=== PATIENT | female | born 1950 | race Caucasian/White ===

== ENCOUNTER 2020-12-03 13:54 | Outpatient (REF) | payer MEDICARE, SELFPAY | END 2020-12-03 13:55 | disposition home or self-care (01) | LOC: HO.BBR 13:54 | PROVIDERS: Visit Provider Internal Medicine Medical Oncology | DX: Z13.89 Encounter for screening for other disorder (principal) ==

== ENCOUNTER 2021-07-14 11:54 | Outpatient (REF) | payer MEDICARE, SELFPAY | END 2021-07-14 11:55 | disposition home or self-care (01) | LOC: HO.BBR 11:54 | PROVIDERS: Visit Provider Internal Medicine Medical Oncology | DX: Z13.89 Encounter for screening for other disorder (principal) ==

== ENCOUNTER 2021-11-16 13:51 | Outpatient (REF) | payer MEDICARE, SELFPAY | END 2021-11-16 13:52 | disposition home or self-care (01) | LOC: HO.BBR 13:51 | PROVIDERS: Visit Provider Internal Medicine Medical Oncology | DX: Z13.89 Encounter for screening for other disorder (principal) ==

== ENCOUNTER 2022-03-23 14:12 | Outpatient (REF) | payer MEDICARE, SELFPAY | END 2022-03-23 14:13 | disposition home or self-care (01) | LOC: HO.BBR 14:12 | PROVIDERS: Visit Provider Internal Medicine Medical Oncology | DX: Z13.89 Encounter for screening for other disorder (principal) ==

== ENCOUNTER 2022-06-29 15:01 | Outpatient (REF) | payer MEDICARE, SELFPAY | END 2022-06-29 15:02 | disposition home or self-care (01) | LOC: HO.BBR 15:01 | PROVIDERS: Visit Provider Internal Medicine Medical Oncology | DX: Z13.89 Encounter for screening for other disorder (principal) ==

== ENCOUNTER 2022-11-06 13:56 | Outpatient (REF) | payer MEDICARE, SELFPAY | END 2022-11-06 13:57 | disposition home or self-care (01) | LOC: HO.BBR 13:56 | PROVIDERS: Visit Provider Internal Medicine Medical Oncology | DX: Z13.89 Encounter for screening for other disorder (principal) ==

== ENCOUNTER 2023-03-21 13:23 | Outpatient (REF) | payer MEDICARE, SELFPAY | END 2023-03-21 13:24 | disposition home or self-care (01) | LOC: HO.BBR 13:23 | PROVIDERS: Visit Provider Internal Medicine Medical Oncology | DX: Z13.89 Encounter for screening for other disorder (principal) ==

== ENCOUNTER 2023-08-02 15:24 | Outpatient (REF) | payer MEDICARE, SELFPAY | END 2023-08-02 15:25 | disposition home or self-care (01) | LOC: HO.BBR 15:24 | PROVIDERS: PCP Internal Medicine; Visit Provider Internal Medicine Medical Oncology | DX: Z13.89 Encounter for screening for other disorder (principal) ==

== ENCOUNTER 2024-01-10 12:49 | Outpatient (REF) | payer MEDICARE, SELFPAY | END 2024-01-10 12:50 | disposition home or self-care (01) | LOC: HO.BBR 12:49 | PROVIDERS: PCP Internal Medicine; Visit Provider Internal Medicine Medical Oncology | DX: Z13.89 Encounter for screening for other disorder (principal) ==

== ENCOUNTER 2024-07-24 12:00 | Outpatient (REF) | payer MEDICARE, SELFPAY ==
--- OUTSIDE RECORDS SUMMARY | 2024-07-24 13:06 | XMS_ITS ---
Author Organization [facility] [place] Address [address] [address] Care Team Providers Care Customer Service Professional Name Role Phone Add, PCP Primary Care Provider Eric Aguilar, September Unavailable [phone] Allergies Allergen (clinical drug ingredient) Drug/Non Drug Allergy documented on EMR Reaction Allergy Type Onset Date Status Biaxin Unknown Drug Allergy Active doxycycline Doxycycline Hyclate Unknown Drug Allergy Active acetaminophen / oxycodone Percocet Unknown Drug Allergy Active cefdinir Cefdinir Unknown Drug Allergy Active Penicillin Unknown Drug Allergy Active Tetanus Toxoids Unknown Drug Allergy A ctive Results Component Value Reference Range Notes CULTURE, AEROBIC BACTERIA Reviewed date:06/16/2024 03:04:21 PM Interpretation: Performing Lab:[facility], [id number] Yolanda Whiting, [id number] Mani Burrell MD Notes/Report: FASTING: UNKNOWN CULTURE, AEROBIC BACTERIA CULTURE, AEROBIC BACTERIA Micro Number: [id number] Test Status: Final Specimen Source: Rt back wound Specimen Quality: Adequate Result: No pathogens isolated. REASON FOR VISIT cyst on back Medications Medication SIG (Take, Route, Frequency, Duration) Notes Start Date End Date Status Alendronate Sodium 70 MG 1 tablet 30 min utes before the first food, beverage or medicine of the day with plain water Orally Active Famotidine 20 MG 1 tablet at bedtime as needed Orally Once a day Active Fexofenadine HCl 60 MG 1 tablet Orally T wice a day Active amLODIPine Besylate-Valsartan 5-160 MG 1 tablet Orally Once a day Active Dupixent 300 MG/2ML as directed Subcutaneous Active Sulfamethoxazole-Trimetho prim 800-160 MG 1 tablet Orally Twice a day for 7 days 06/10/2024 06/17/2024 Active Flonase Sensimist 27.5 MCG/SPRAY 2 sprays (1 spray in each nostril) Nasally Once a day Active Symbicort 160-4.5 MCG/ACT as directed Inhalation Active Problems Problem Type SNOMED Code ICD Code Onset Dates Problem Status W/U Status Risk Notes Problem Asthma (192039916) Asthma (J45.909) Active conf irmed Problem High blood pressure (74974832) High blood pressure (I10) Active confirmed Problem Gastroesophageal reflux disease (552363544) GERD (gastroesophageal reflux disease) (K21.9) Active confirmed Problem Essential hypertension (95657084) Essential hypertension (I10) Active confirmed Problem Mild intermittent asthma (923514709) Mild intermittent asthma, unspecified whether complicated (J45.20) Active confirmed Problem Gastroesophageal reflux disease without esophagitis (586569475) Gastroesophageal reflux disease without esophagitis (K21.9) Active confirmed Vital Signs Temperature 98.6 degrees Fahrenheit 06/10/19 25 Blood pressure systolic 118 mm Hg 06/10/19 25 Blood pressure diastolic 74 mm Hg 025 Heart Rate 68 /min 06/10/2024 Respiratory Rate 18 /min 06/10/2024 Height 5ft 3in in 06/10/2024 Weight 153.0 lbs 06/10/2024 BMI 27.1 kg/m2 06/10/2024 Oximetry 96 % 06/10/2024 Height-cm 160.02 cm 06/10/2024 Weight-kg 69.4 kg 06/10/2024 Encounters Encounter Location Date Provider Diagnosis [facility] [address] [address] 06/10/2024September Aguilar Abscess L02.91 ; Mil d intermittent asthma, unspecified whether complicated J45.20 ; Gastroesophageal reflux disease without esophagitis K21.9 ; Essential hypertension I10 ; Alcohol use Z78.9 ; Encounter for screening for depression Z13.31 ; Medication management Z79.899 ; Encounter for smoking cessation counseling Z71.6 and Counseling and coordination of care Z71.89 Assessments Encounter Date Diagnosis (ICD Code) Assessment Notes Treatment Notes Treatment Clinical Notes Section Notes 06/10/2024 Abscess (ICD-10 - L02.91) Apply warm compresses to the area which will help it open and drain or absorb and go away. Be sure to use good handwashing to help prevent Infection Keep open wound covered to prevent spreading infection or getting additional infection Take Tylenol/Ibuprofe n as needed for pain. Follow up with PCP or clinic as needed 06/10/2024 Mild intermittent asthma, unspecified whether complicated (ICD-10 - J45.20) Stable per patient on current inhalers. Avoid possible triggers including smoking or smoke exposure, pollution/bad air days, change filters in vents regularly. Good hand washing practices and oral hygiene. Avoid crowds during cold/flu season. Vaccination against flu and pneumonia. Stay active and eat healthy. 06/10/2024 Gastroesophageal reflux disease without esophagitis (ICD-10 - K21.9) Patient reports chronic condition stable on current medication/treat ment plan. Continue with routine follow up and monitoring with pcp. Notify pcp if worsening or new symptoms. Limit/avoid caffeine/alcohol /spicy foods, do not eat/drink anything 1 hour prior to bedtime, and routine exercise as tolerated. 06/10/2024 Essential hypertension (ICD-10 - I10) Stable, blood pressure in clinic today was within normal limits. Continue with current medication and follow up with your pcp routinuely for monitoring. Maintaining a healthy lifestyle including a healthy heart diet and regular activity may help lower blood pressure. Choose a diet rich in fruits, vegetables, and low-fat dairy products. Limit amount of saturated fat, trans fat, sodium, red meat, alcohol, sweets, and sugar-sweetened beverages 06/10/2024 Alcohol use (ICD-10 - Z78.9) 06/10/2024 Encounter for screening for depression (ICD-10 - Z13.31) 06/10/2024 Medication management (ICD-10 - Z79.899) 06/10/2024 Encounter for smoking cessation counseling (ICD-10 - Z71.6) 06/10/2024 Counseling and coordination of care (ICD-10 - Z71.89) 06/10/2024 Other Please arrange a follow up visit with your primary care physician to discuss your conditions as soon as possible. You may return to the clinic if your signs or symptoms persist or worsen. For life threatening emergencies, please call 911 or go to the closest emergency room for detailed medical care. You must understand that we are not a primary care facility and you have received Urgent Care treatment only, and that you may have been released before all of your medical problems were known or treated. You, the patient, are responsible to make arrangements with your primary care physician as instructed. Please arrange for follow up medical care for your condition within one week. You must understand that as an Urgent Care Clinic, we are not responsible for routine healthcare maintenance. Such services are to be provided by your primary care physician, even though you may have been seen multiple times in our facility. If your condition worsens, we recommend that you receive another evaluation at the emergency room immediately or contact your primary care physician to discuss your concerns. The patient's / family / guardian questions, concerns, and treatment plan were discussed in detail and all questions were answered to full satisfaction. The patient / family/ guardian are in agreement with the plan of care. Plan Of Treatment Medication Medication Name Sig Start Date Stop Date Notes Sulfamethoxazole-Trimethopri m 800-160 MG 1 tablet Orally Twice a day for 7 days 06/10/2024 06/17/2024 Treatment Notes Assessment Notes Abscess Apply warm compresses to the area which will help it open and drain or absorb and go away. Be sure to use good handwashing to help prevent Infection Keep open wound covered to prevent spreading infection or getting additional infection Take Tylenol/Ibuprofen as needed for pain. Follow up with PCP or clinic as needed Mild intermittent asthma, un specified whether complicated Stable per patient on current inhalers. Avoid possible triggers including smoking or smoke exposure, pollution/bad air days, change filters in vents regularly. Good hand washing practices and oral hygiene. Avoid crowds during cold/flu season. Vaccination against flu and pneumonia. Stay active and eat healthy. Gastroesophageal reflux dise ase without esophagitis Patient reports chronic condition stable on current medication/treatment plan. Continue with routine follow up and monitoring with pcp. Notify pcp if worsening or new symptoms. Limit/avoid caffeine/alcohol/spicy foods, do not eat/drink anything 1 hour prior to bedtime, and routine exercise as tolerated. Essential hypertension Stable, blood pressure in clinic today was within normal limits. Continue with current medication and follow up with your pcp routinuely for monitoring. Maintaining a healthy lifestyle including a healthy heart diet and regular activity may help lower blood pressure. Choose a diet rich in fruits, vegetables, and low-fat dairy products. Limit amount of saturated fat, trans fat, sodium, red meat, alcohol, sweets, and sugar-sweetened beverages Other Please arrange a follow up visit with your primary care physician to discuss your conditions as soon as possible. You may return to the clinic if your signs or symptoms persist or worsen. For life threatening emergencies, please call 911 or go to the closest emergency room for detailed medical care. You must understand that we are not a primary care facility and you have received Urgent Care treatment only, and that you may have been released before all of your medical problems were known or treated. You, the patient, are responsible to make arrangements with your primary care physician as instructed. Please arrange for follow up medical care for your condition within one week. You must understand that as an Urgent Care Clinic, we are not responsible for routine healthcare maintenance. Such services are to be provided by your primary care physician, even though you may have been seen multiple times in our facility. If your condition worsens, we recommend that you receive another evaluation at the emergency room immediately or contact your primary care physician to discuss your concerns. The patient's / family / guardian questions, concerns, and treatment plan were discussed in detail and all questions were answered to full satisfaction. The patient / family/ guardian are in agreement with the plan of care. Next Appt Details Follow Up: F/u with pcp in 2 - 3 Days, Reason: Progress Notes * Radha KIRANOB:1950 (74 yo F)Acc No.[id number]:06/10/2024 Patient:?Ana KIRAN Provider:Willy Aguilar APRN :1950???Age:73 Y???Sex:Female D ate:06/10/2024 Phone: Address:[address] [place] [address] [place], [place], [id number] Pcp:PCP Add Subjective: * Chief Complaints: * ???Cyst on back * HPI: ???Complaint:?Skin Irritation?The skin irritation started?years ?The skin irritation started?right side of her back ?Onset of the skin irritation?has been progressive ?Severity of the skin irritation?is moderate ?The nature of the skin irritation is?redness and crusting ?Aggravating factors include?is not healing ?Alleviating factors include?none ?Associated symptoms include?pain and swelling ?Medication(s) include?none ?Additional information?pt reporting that the last time that she went to her PCP he prescribe her antibiotic but the cyst is not improving and is not gone ?Indigestion?The indigestion has been present?for years ?Severity of the indigestion?is mild ?Aggravating factors include?spicy foods ?Alleviating factors include?proton pump inhibitors ?Associated symptoms include?bloating ?Medication(s) for indigestion include?proton pump inhibitors ?Overall condition?is stable ???*Patient Intake:?New/Est?Patient is a?new patient. ?Historian?Historian?Self ?PCP?Patient has a Primary Care Provider:?Yes ???Pain Management:?Pain Scale?Pain Scale (1-10)?3 ???Alcohol Screening (18yrs+):?Audit-C?Did you have a drink containing alcohol in the past year??Yes ?How often did you have a drink containing alcohol in the past year??Monthly or less ?How many drinks did you have on a typical day when you were drinking in the past year??1 or 2 ?How often did you have six or more drinks on one occasion in the past year??Less than monthly ???Depression Screening (12yrs+):?PHQ-2: How often have the following problems occurred?Little interest or pleasure in doing things??Not at all ?Feeling down, depressed, or hopeless??Not at all ???Drug Screening (18yrs+):?Drug Abuse Screening Tool?Have you used drugs other than those for medical reasons in the past 12 months??No ?Do you use Medical Marijuana or THC Products?No ???Fall Risk (65yrs+):?Assessment?Have you had two or more falls in the past year??No ?Fall Risk Assessment:?No falls in the past year ???Tobacco Screening (All Ages):?Tobacco Use (18yrs+)?Are you a:?Non Smoker ?Have you:?Never Smoked ?Do you use other forms of Tobacco other than cigarettes??None * ROS:?General/Constitutional:?Overall health?good.?Fever?denies.?Night sweats?denies.?Weight loss?denies.?Ophthalmologic:?Vision changes?denies.?Eye Discharge?denies.?Eye Pain?denies.?ENT:?Ear pain?denies.?Nose/Throat problems?denies.?Sore throat?denies.?Respiratory:?Breathing problems?admits , Asthma.?Cough?denies.?Shortness of breath?denies.?Cardiovascular:?Chest pain?denies.?High blood pressure?admits , controlled on medication.?Palpitations?denies.?Gastrointestinal:?Patient complaining of?GERD.?Abdominal p ain?denies.?Constipation?denies.?Diarrhea?denies.?Nausea?denies.?Vomiting?denies .?Genitourinary:?Blood in urine?denies.?Difficulty urinating?denies.?Painful urination?denies.?Musculoskeletal:?Back pain?denies.?Neck pain?denies.?Skin:?Patient complaining of?see hpi.?Neurologic:?Dizziness?denies.?Headache?denies.? * Medical History:? * Surgical History:?hemochroma tosis colonoscopy endoscopy cervical fusion pneumocacal * Hospitalization/Major Diagno stic Procedure:?Denies Past Hospitalization * Family History:?Father: dece ased.?Mother: .? * Medications:?TakingFlonase S ensimist 27.5 MCG/SPRAY Suspension 2 sprays (1 spray in each nostril) Nasally Once a day Symbicort 160-4.5 MCG/ACT Aerosol as directed Inhalation Dupixent 300 MG/2ML Solution Prefilled Syringe as directed Subcutaneous Alendronate Sodium 70 MG Tablet 1 tablet 30 minutes before the first food, beverage or medicine of the day with plain water Orally Famotidine 20 MG Tablet 1 tablet at bedtime as needed Orally Once a day Fexofenadine HCl 60 MG Tablet 1 tablet Orally Twice a day amLODIPine Besylate-Valsartan 5-160 MG Tablet 1 tablet Orally Once a day Medication List reviewed and reconciled with the patientTaking Flonase Sensimist 27.5 MCG/SPRAY Suspension 2 sprays (1 spray in each nostril) Nasally Once a day Taking Symbicort 160-4.5 MCG/ACT Aerosol as directed Inhalation Taking Dupixent 300 MG/2ML Solution Prefilled Syringe as directed Subcutaneous Taking Alendronate Sodium 70 MG Tablet 1 tablet 30 minutes before the first food, beverage or medicine of the day with plain water Orally Taking Famotidine 20 MG Tablet 1 tablet at bedtime as needed Orally Once a day Taking Fexofenadine HCl 60 MG Tablet 1 tablet Orally Twice a day Taking amLODIPine Besylate-Valsartan 5-160 MG Tablet 1 tablet Orally Once a day Medication List reviewed and reconciled with the patient * Allergies:?PenicillinTetanus ToxoidsPercocetBiaxinCefdinirDoxycycline Hyclateno[Allergies Verified] Objective: * Vitals:?Temp:98.6F, HR:68/mi n, BP:118/74mm Hg, Wt:153.0lbs, Ht: 5ft 3in, BMI:27.1Index, RR:18/min, Oxygen sat %:96%, Ht-cm: 160.02 cm, Wt-k.4 kg. * Examination: ???General Examination: ?GENERAL APPEARANCE:?in no acute distress, well developed, well nourished .?HEAD:?normocephalic, atraumatic.?EYES:?pupils equal, round, sclera non-icteric.?LYMPH NODES:?normal, no lymphadenopathy.?SKIN:?abscess- wound right back just below bra line: approximately 2 cm indurated/fluctuant abscess with surrounding erythema and edema, tender and warm to touch, mild thick white discharge?.?HEART:?no murmurs, regular rate and rhythm, S1, S2 normal.?LUNGS:?clear to auscultation bilaterally.?CHEST:?no gross chest deformity.?MUSCULOSKELETAL:? full range of motion.?EXTREMITIES:?no clubbing, cyanosis, or edema.?NEUROLOGIC:?nonfocal,?, alert and oriented, cooperative with exam.?PSYCH?alert, oriented, cognitive function intact, cooperative with exam.? Assessment: * Assessment: 1.?Abscess - L02.91 (Primary )???2.?Mild intermittent asthma, unspecified whether complicated - J45.20???3.?Gastroesophageal reflux disease without esophagitis - K21.9???4.?Essential hypertension - I10???5.?Alcohol use - Z78.9???6.?Encounter for screening for depression - Z13.31???7.?Medication management - Z79.899???8.?Encounter for smoking cessation counseling - Z71.6???9.?Counseling and coordination of care - Z71.89??? Plan: * Treatment: 2.?Mild intermittent asthma, unspecified whether complicated? Notes: Stable per patient on current inhalers. Avoid possible triggers including smoking or smoke exposure, pollution/bad air days, change filters in vents regularly. Good hand washing practices and oral hygiene. Avoid crowds during cold/flu season. Vaccination against flu and pneumonia. Stay active and eat healthy. ?? 3.?Gastroesophageal reflux d isease without esophagitis? Notes: Patient reports chronic condition stable on current medication/treatment plan. Continue with routine follow up and monitoring with pcp. Notify pcp if worsening or new symptoms. Limit/avoid caffeine/alcohol/spicy foods, do not eat/drink anything 1 hour prior to bedtime, and routine exercise as tolerated. ?? 4.?Essential hypertension? Notes: Stable, blood pressure in clinic today was within normal limits. Continue with current medication and follow up with your pcp routinuely for monitoring.Maintaininga healthy lifestyle including a healthy heart diet and regular activity may help lower blood pressure. Choose a diet rich in fruits,vegetables, and low-fat dairy products. Limit amount of saturated fat, transfat, sodium, red meat, alcohol, sweets, and sugar-sweetened beverages?? 5.?Others? Notes:Please arrange a follow up visit with your primary care physician to discuss your conditions as soon as possible. You may return to the clinic if your signs or symptoms persist or worsen. For life threatening emergencies, please call 911 or go to the closest emergency room for detailed medical care. You must understand that we are not a primary care facility and you have received Urgent Care treatment only, and that you may have been released before all of your medical problems were known or treated. You, the patient, are responsible to make arrangements with your primary care physician as instructed. Please arrange for follow up medical care for your condition within one week. You must understand that as an Urgent Care Clinic, we are not responsible for routine healthcare maintenance. Such services are to be provided by your primary care physician, even though you may have been seen multiple times in our facility. If your condition worsens, we recommend that you receive another evaluation at the emergency room immediately or contact your primary care physician to discuss your concerns. The patient's / family / guardian questions, concerns, and treatment plan were discussed in detail and all questions were answered to full satisfaction. The patient / family/ guardian are in agreement with the plan of care.?? * Procedure Codes:?1123F ACP D ISCUSS/DSCN MKR [id number] Screen unhlthy etoh [id number] NEG SCR D PT NOT ELIG F/U/PLN [id number] DOC MEDS VERIFIED W/PT OR [id number] Pt scrn tbco id as non [id number] NORMAL BP READING DOC F/U NOT [id number] BMI<30 AND >=22 CALC & [id number] Unhlthy etoh rcvd couns * Preventive Medicine:? ??Counseling:?ALCOHOL USE/ABUSE SCREENING:?Counseling for alcohol use/abuse ?was completed today ?Positive CAGE questions included?[...] ?Social:?alcohol and drugs:?Discussed the dangers of excessive alcohol intake * Follow Up:?F/u with pcp in 2 - 3 Days * Images * 06/10/2024 * Sign off status: Completed true * Provider:?September Lenora Aguilar APRN Date:?12/2024 Generated for Shawn sánchez/Jose/eTshmuelitting on:?07/24/2024 01:06 PM EST History and Physical Notes * HPI (History of Present Illness) Category Sub-Category Detail Notes Category Not es DOT Physical Injection Pain Management Pain Scale Pain Scale (1-10 ): 3 Depression Screening (12yrs+) PHQ-2: How often have the following problems occurred? Little interest or pleasure in doing things?: Not at all Feeling down, depressed, or hopeless?: N ot at all Drug Screening (18yrs+) Drug Abuse Screening Too l Have you used drugs other than those for medical reasons in the past 12 months?: No Do you use Medical Marijuana or THC Prod ucts: No Alcohol Screening (18yrs+) Audit-C Did y ou have a drink containing alcohol in the past year?: Yes ?How often did you have a dr ink containing alcohol in the past year?: Monthly or less ?How many drinks did you hav e on a typical day when you were drinking in the past year?: 1 or 2 ?How often did you have six or more drinks on one occasion in the past year?: Less than monthly Complaint Skin Irritation The skin irritation started: ye ars The skin irritation started: right side of her back Onset of the skin irritation : has been progressive Severity of the skin irritat ion: is moderate The nature of the skin irrit ation is: redness and crusting Aggravating factors include: is not heal ing Alleviating factors include: none Associated symptoms include: pain and swelling Medication(s) include: none Additional information: pt reporting vel t the last time that she went to her PCP he prescribe her antibiotic but the cyst is not improving and is not gone Indigestion The indigestion has been present : for years Severity of the indigestion : is mild Aggravating factors include: spicy foods Alleviating factors include: proton pump inhibitors Associated symptoms include: bloating Medication(s) for indigestion include: p roton pump inhibitors Overall condition: is stable *Patient Intake New/Est Patient is a: new patient. Historian Historian: Self PCP Patient has a Primary Care Provi lakshmi:: Yes Fall Risk (65yrs+) Assessment Have you had two or more falls in the past year?: No Fall Risk Assessment:: No falls in the p ast year Tobacco Screening (All Ages) Tobacco Use (18yrs+) Are you a:: Non Smoker ?Have you:: Never Smoked Do you use other forms of Tobacco other than cigarettes?: None Examination Category Sub-Category Detail Notes Category Not es General Examination GENERAL APPEARANCE: in no ac cachil dehe distress, well developed, well nourished HEAD: normocephalic, atrau matic EYES: pupils equal, round, sclera non-icteric HEART: no murmurs, regular rate and rhythm, S1, S2 normal CHEST: no gross chest defor mity LUNGS: clear to auscultatio n bilaterally NEUROLOGIC: nonfocal, , alert an d oriented, cooperative with exam SKIN: abscess- wound right back just below bra line: approximately 2 cm indurated/fluctuant abscess with surrounding erythema and edema, tender and warm to touch, mild thick white discharge EXTREMITIES: no clubbing, cyanosi s, or edema MUSCULOSKELETAL: full range of motion LYMPH NODES: normal, no lymphaden opathy PSYCH alert, oriented, cog nitive function intact, cooperative with exam
--- OUTSIDE RECORDS SUMMARY | 2024-07-24 13:06 | XMS_ITS | Patient Health Record ---
Author Organization [facility] [place] Address [address] [facility] [address] [place] [address] Care Team Providers Care Neck Fitter Name Role Phone Add, PCP Primary Care Provider Eric Aguilar, September Unavailable [phone] Allergies Allergen (clinical drug ingredient) Drug/Non Drug [...] date:06/16/2024 03:04:21 PM Interpretation: Performing Lab:TP, [id number] [id number] Mani Burrell MD Notes/Report: FASTING: UNKNOWN CULTURE, AEROBIC BACTERIA CULTURE, AEROBIC BACTERIA Micro Number: [id number] Test Status: Final Specimen Source: Rt back wound Specimen Quality: Adequate Result: No pathogens isolated. Reason For Referral No Information Medications Medication SIG (Take, Route, Frequency, Duration) [...] MG 1 tablet Orally Once a day A ctive Flonase Sensimist 27.5 MCG/SPRAY 2 sprays (1 spray in each nostril) Nasally Once a day Active Symbicort 160-4.5 MCG/ACT as directed Inhalation Active Dupixent 300 MG/2ML as directed Subcutaneous Active Problems Problem Type SNOMED Code ICD Code Onset Dates Problem Status W/U Status Risk Notes Problem Gastroesophageal reflux disease (629922646) GERD (gastroesophageal reflux disease) (K21.9) Active confirmed Problem Asthma (637492833) Asthma (J45.909) Active conf irmed Problem Essential hypertension (46306127) Essential hypertension (I10) Active confirmed Problem Gastroesophageal reflux disease without esophagitis (018882396) Gastroesophageal reflux disease without esophagitis (K21.9) Active confirmed Problem High blood pressure (86676928) High blood pressure (I10) Active confirmed Problem Mild intermittent asthma (442369006) Mild intermittent asthma, unspecified whether complicated (J45.20) Active confirmed Vital Signs Heart Rate 68 /min 06/10/2024 Temperature 98.6 degrees Fahrenheit 06/10/2024 Respiratory Rate 18 /min 06/10/2024 Blood pressure diastolic 74 mm Hg 06/10/2024 Oximetry 96 % 06/10/2024 Height-cm 160.02 cm 06/10/2024 Weight-kg 69.4 kg 06/10/2024 Height 5ft 3in in 06/10/2024 Blood pressure systolic 118 mm Hg 06/10/2024 Weight 153.0 lbs 06/10/2024 BMI 27.1 kg/m2 06/10/2024 Encounters Encounter Location Date Provider Diagnosis [facility] [address] [address] 06/10/2024September Aguilar Abscess L02.91 ; Mil d [...] the plan of care. Plan Of Treatment No Information Insurance Providers Payer Name Payer Address Payer Phone Subscriber Number Group Number Insured Name Patient Relationship to Insured Coverage Start Date Coverage End Date [employer] of [place] [employer] [address] [place] [phone] [id number] Ana Kiran Self - patient is the insured 5 [facility] [address] [place] [address] [phone] [id number] Ana Kiran Self - patient is the insured 5 Medical (General) History Medical History History ICD Code Asthma J45.909 High blood pressure I10 GERD (gastroesophageal reflux disease) K 21.9 Surgical History Surgery Date(Month/Year) hemochromatosis colonoscopy endoscopy cervical fusion pneumocacal
== END 2024-07-24 12:01 | disposition home or self-care (01) ==
LOC: HO.BBR 12:00
PROVIDERS: PCP Internal Medicine; Visit Provider Internal Medicine Medical Oncology
DX: Z13.89 Encounter for screening for other disorder (principal)

== ENCOUNTER 2024-11-27 11:48 | Outpatient (REF) | payer MEDICARE, SELFPAY ==
--- OUTSIDE RECORDS SUMMARY | 2024-11-27 14:10 | XMS_ITS | Patient Health Record ---
Author Organization [facility] Address [address] [facility] [address] [place] [address] Care Team Providers Care Data Architect Manager Name Role Phone Add, PCP Primary Care Provider Eric Aguilar, September Unavailable [phone] Allergies Allergen (clinical drug ingredient) Drug/Non Drug [...] date:06/16/2024 03:04:21 PM Interpretation: Performing Lab:TP, [id number] [id number] Mani Burrell MD Notes/Report: FASTING: UNKNOWN CULTURE, AEROBIC BACTERIA CULTURE, AEROBIC BACTERIA Micro Number: [id number] Test Status: Final Specimen Source: Rt back [...] Status Risk Notes Problem Gastroesophageal reflux disease (557873622) GERD (gastroesophageal reflux disease) (K21.9) Active confirmed Problem Asthma (749498793) Asthma (J45.909) Active conf irmed Problem Essential hypertension (07249163) Essential hypertension (I10) Active confirmed Problem Gastroesophageal reflux disease without esophagitis (107802192) Gastroesophageal reflux disease without esophagitis (K21.9) Active confirmed Problem High blood pressure (32029909) High blood pressure (I10) Active confirmed Problem Mild intermittent asthma (248041475) Mild intermittent asthma, unspecified whether complicated (J45.20) [...] 06/10/2024 Encounters Encounter Location Date Provider Diagnosis [facility] [address] [address] 06/10/2024September Aguilar Abscess L02.91 ; Mil d [...] [employer] [address] [place] [phone] [id number] Ana Kiran Self - patient is the insured [address] [facility] [address] [place] [address] [id number] Ana Kiran Self - patient is the insured 5 Medical (General) History Medical History History ICD Code Asthma J45.909 High blood pressure I10 GERD (gastroesophageal reflux disease) K 21.9 Surgical History Surgery Date(Month/Year) hemochromatosis colonoscopy endoscopy cervical fusion pneumocacal
== END 2024-11-27 11:49 | disposition home or self-care (01) ==
LOC: HO.BBR 11:48
PROVIDERS: PCP Internal Medicine; Visit Provider Internal Medicine Medical Oncology
DX: Z13.89 Encounter for screening for other disorder (principal)

== ENCOUNTER 2025-03-26 11:46 | Outpatient (REF) | payer MEDICARE, SELFPAY | END 2025-03-26 11:47 | disposition home or self-care (01) | LOC: HO.BBR 11:46 | PROVIDERS: PCP Internal Medicine; Visit Provider Internal Medicine Medical Oncology | DX: Z13.89 Encounter for screening for other disorder (principal) ==